=== PATIENT | female | born 1995 | race American Indian/Alaskan Native ===

== ENCOUNTER 2017-09-10 16:17 | Emergency (ER) | payer BC ==
[2017-09-10 16:27] VITALS: BP 120/77
--- NOTE | 2017-09-10 17:23 | Emergency Department Report ---
ED Female HPI - General Chief complaint: Urogenital-Female Stated complaint: FOREIGN BODY STUCK IN VAGINA Time Seen by Provider: 09/10/17 17:09 Source: patient Mode of arrival: Ambulatory Limitations: No Limitations - History of Present Illness Initial comments: This is a 21-year-old -[place] female who presents with foreign objects to in her vagina for 5 days. Patient reports putting a makeup sponge vagina on September 05 when her menses started. Patient reports her friend told her this another option if she can use instead of the tampon. She had intercourse with her boyfriend with a makeup sponge clear and she was unable to retrieve it afterwards. Patient reports now having a very foul odor, burning on urination she, and nausea. She is also requesting treatment for gonorrhea or chlamydia because she received it partner who reports they have gonorrhea. She denies lower abdominal pain, fever, discharge, frequency, and urgency. MD Complaint: dysuria, pelvic pain -: days(s) (5 days) Location: suprapubic Radiation: non-radiating Severity: moderate Severity scale (0 -10): 6 Quality: aching Consistency: constant Improves with: none Worsens with: intercourse Are you Now?: No Last Menstrual Period: 09/05/17 EDC: 06/12/18 Associated Symptoms: abdominal pain, dysuria. denies: vaginal discharge, vaginal bleeding, nausea/vomiting, fever/chills, headaches, loss of appetite, hematuria, rash, seizure, shortness of breath, syncope, weakness - Related Data Sexually active: Yes : 0 Previous Rx's Medication Instructions Recorded Last Taken Type Sulfamethoxazole/Trimethoprim 1 each PO BID #14 tablet 09/10/17 Unknown Rx [Bactrim DS TAB] metroNIDAZOLE [Metronidazole] 500 mg PO BID #10 tablet 09/10/17 Unknown Rx Allergies Allergy/AdvReac Type Severity Reaction Status Date / Time No Known Allergies Allergy Unverified 09/10/17 16:24 ED Review of Systems ROS: Stated complaint: FOREIGN BODY STUCK IN VAGINA Other details as noted in HPI Constitutional: denies: chills, fever Respiratory: denies: cough, shortness of breath, wheezing Cardiovascular: denies: chest pain, palpitations Gastrointestinal: abdominal pain. denies: nausea, diarrhea Genitourinary: dysuria. denies: urgency, frequency, hematuria, discharge Neurological: denies: headache, weakness, numbness, paresthesias Psychiatric: denies: anxiety, depression ED Past Medical Hx - Past Medical History Previous Medical History?: No - Surgical History Past Surgical History?: No - Social History Smoking Status: Current Every Day Smoker Substance Use Type: None - Medications Home Medications: Home Medications Medication Instructions Recorded Confirmed Last Taken Type Sulfamethoxazole/Trimethoprim 1 each PO BID #14 tablet 09/10/17 Unknown Rx [Bactrim DS TAB] metroNIDAZOLE [Metronidazole] 500 mg PO BID #10 tablet 09/10/17 Unknown Rx ED Physical Exam - General Limitations: No Limitations General appearance: alert, in no apparent distress - Respiratory Respiratory exam: Present: normal lung sounds bilaterally. Absent: respiratory distress - Cardiovascular Cardiovascular Exam: Present: regular rate, normal rhythm, normal heart sounds. Absent: systolic murmur, diastolic murmur, rubs, gallop - GI/Abdominal GI/Abdominal exam: Present: soft, normal bowel sounds. Absent: organomegaly, mass - External exam: Present: normal external exam Speculum exam: Present: erythema, vaginal bleeding, foreign body (malodorous makeup sponge). Absent: vaginal discharge, cervical discharge, tissue, laceration Bi-manual exam: Present: normal bi-manual exam - Back Exam Back exam: Present: normal inspection. Absent: CVA tenderness (R), CVA tenderness (L) - Neurological Exam Neurological exam: Present: alert, oriented X3 - Psychiatric Psychiatric exam: Present: normal affect, normal mood - Skin Skin exam: Present: warm, dry, intact, normal color. Absent: rash ED Course Vital Signs 09/10/17 16:24 Temperature 98.7 F Pulse Rate 99 H Respiratory 18 Rate Blood Pressure 120/77 O2 Sat by Pulse 96 Oximetry ED Medical Decision Making - Medical Decision Making This is a 21-year-old -[place] female who presents with makeup spine and vagina for 5 days and recent exposure to STD. Patient was examined by me. Vitals are normal and in no acute distress. Obtain urinalysis and urine hCG. Performed pelvic exam and removed foreign object, makeup sponge with Forceps. Empirically treated with Rocephin 250 mg IM and azithromycin 1 g by mouth. Start bactrim DS po bid x 7 days, prophylactic treatment of possible toxic infection. Patient denies symptoms. Discharged home in stable condition. Discussed prevention options. F/U with PCP or Health Department. Critical care attestation.: If time is entered above; I have spent that time in minutes in the direct care of this critically ill patient, excluding procedure time. ED Disposition Clinical Impression: Exposure to STD Foreign body in vagina Qualifiers: Encounter type: initial encounter Qualified Code(s): T19.2XXA - Foreign body in vulva and vagina, initial encounter Disposition: TO HOME OR SELFCARE Is pt being admited?: No Does the pt Need Aspirin: No Condition: Stable Instructions: Sexually Transmitted Diseases (ED), Safe Sex (ED), Vaginal Foreign Body (ED) Additional Instructions: Avoid drinking alcohol while taking antibiotics and for 24 hours after completion. Continue safe sexual intercourse. Follow up with Primary Care Provider or health department. Prescriptions: metroNIDAZOLE [Metronidazole] 500 mg PO BID #10 tablet Sulfamethoxazole/Trimethoprim [Bactrim DS TAB] 1 each PO BID #14 tablet Referrals: [facility] [Outside] - 3-5 Days [facility] [Outside] - 3-5 Days [facility] [Outside] - 3-5 Days Time of Disposition: 18:50 Print Language: LATVIAN
[2017-09-10] MEDS ORDERED: XYLOCAINE 1% MPF 5 mL INFILTRATI ONE (18:33)
[2017-09-10] MEDS ORDERED: ROCEPHIN IM ONE (18:33)
[2017-09-10] MEDS ORDERED: ZITHROMAX PO ONE (18:33)
[2017-09-10 18:50] LABS: Bilirubin,Urine NEG (Negative); Blood,Urine LG (Negative); Color,Urine Amber (Yellow); Mucus,Urine 3+ /HPF
[2017-09-10 18:51] LABS: HCG Qualitative,Urine Negative (Negative)
[2017-09-10 18:54] LABS: RBC,Urine > 182.0 /HPF (0.0-6.0); WBC,Urine > 182.0 /HPF (0.0-6.0)
== END 2017-09-10 19:01 | disposition home or self-care (01) ==
LOC: ED 16:17
DX: T19.2XXA Foreign body in vulva and vagina, initial encounter (principal); F17.200 Nicotine dependence, unspecified, uncomplicated; W45.8XXA Other foreign body or object entering through skin, initial encounter; Y93.89 Activity, other specified; Y99.8 Other external cause status; Y92.89 Other specified places as the place of occurrence of the external cause
CPT/HCPCS: 81001; 81025; 96372; 99284; J0696

== ENCOUNTER 2017-11-06 19:16 | Emergency (ER) | payer BC ==
[2017-11-06 21:59] VITALS: BP 117/80
[2017-11-06 23:12] LABS: HCG Qualitative,Urine Negative (Negative)
[2017-11-06 23:15] LABS: Bacteria,Urine 1+ /HPF (Negative); Bilirubin,Urine NEG (Negative); Blood,Urine SM (Negative); Color,Urine Yellow (Yellow); Mucus,Urine 1+ /HPF; Protein,Urine <15 mg/dL mg/dL (Negative); Urobilinogen,Urine < 2.0 mg/dL (<2.0)
== END 2017-11-07 00:16 | disposition left against medical advice (07) ==
LOC: ED 19:16
DX: N89.8 Other specified noninflammatory disorders of vagina (principal); Z53.21 Procedure and treatment not carried out due to patient leaving prior to being seen by health care provider
CPT/HCPCS: 81001; 81025

== ENCOUNTER 2017-11-07 11:56 | Emergency (ER) | payer BC ==
[2017-11-07 12:09] VITALS: BP 119/83
== END 2017-11-07 14:35 | disposition left against medical advice (07) ==
LOC: ED 11:56
DX: R10.9 Unspecified abdominal pain (principal); Z53.21 Procedure and treatment not carried out due to patient leaving prior to being seen by health care provider